=== PATIENT | male | born 2000 | race Caucasian/White ===

== ENCOUNTER 2023-01-11 06:11 | Day surgery (SDC) | payer OTHER ==
[~2023-01-11] VITALS: Ht 165.1 cm; Wt 65.8 kg
[2023-01-11] MEDS ORDERED: MIDAZOLAM 5 MG/5 ML VIAL ONE (07:18)
[2023-01-11] MEDS ORDERED: fentaNYL citrate 0.05 MG/ML VIAL ONE (07:18)
[2023-01-11] MEDS ORDERED: MIDAZOLAM 2 MG/2 ML VIAL IVP ONE (13:25)
== END 2023-01-11 08:57 | disposition home or self-care (01) ==
LOC: MDS 06:11 → MMU 06:48 → MDS 08:57
PROVIDERS: ATTEND Internal Medicine Gastroenterology
DX: R13.10 Dysphagia, unspecified (principal); K22.2 Esophageal obstruction
CPT/HCPCS: 43239; J2250; 88305; 88313; J3010